=== PATIENT | male | born 1990 | race Caucasian/White ===

== ENCOUNTER 2024-12-16 14:14 | Inpatient (IN) | payer OTHER ==
[2024-12-16 14:43] VITALS: BMI 27.1
[2024-12-16] MEDS ORDERED: BENZONATATE 200 MG CAPSULE PO PRN (15:07)
[2024-12-16] MEDS ORDERED: NALOXONE (NARCAN) HCL 4 MG/0.1 ML SPRAY NS PRN (15:07)
[2024-12-16] MEDS ORDERED: DICYCLOMINE HCL 10 MG CAPSULE PO PRN (15:07)
[2024-12-16] MEDS ORDERED: IBUPROFEN 400 MG TABLET (FP) PO PRN (15:07)
[2024-12-16] MEDS ORDERED: hydrOXYzine PAMOATE 25 MG CAPSULE (FP) PO PRN (15:07)
[2024-12-16] MEDS ORDERED: guaiFENesin 600 MG TABLET.ER (FP) PO PRN (15:07)
[2024-12-16] MEDS ORDERED: ACETAMINOPHEN 325 MG TABLET (FP) PO PRN (15:07)
[2024-12-16] MEDS ORDERED: BENZOCAINE/MENTHOL (CHLORASEPTIC ) LOZENGE MM PRN (15:07)
[2024-12-16] MEDS ORDERED: POLYETHYLENE GLYCOL (HEALTHYLAX) 3350 17 GM PACKET PO PRN (15:07)
[2024-12-16] MEDS ORDERED: IBUPROFEN 600 MG TABLET (FP) PO PRN (15:07)
[2024-12-16] MEDS ORDERED: LOPERAMIDE HCL 2 MG CAPSULE PO PRN (15:07)
[2024-12-16] MEDS ORDERED: MAGNESIUM HYDROX 2400MG/30ML ORAL SUSPENSION 30 ML CUP PO PRN (15:07)
[2024-12-16] MEDS ORDERED: MAG HYDROX/AL HYDROX/SIMETH 30 ML UNIT-DOSE CUP PO PRN (15:07)
[2024-12-16] MEDS ORDERED: BISMUTH SUBSALICYLATE 524 MG/30 ML PO PRN (15:07)
[2024-12-16] MEDS ORDERED: METHOCARBAMOL 500 MG TABLET PO PRN (15:07)
[2024-12-16] MEDS ORDERED: chlordiazePOXIDE HCL 25 MG CAPSULE PO PRN (15:13)
[2024-12-16] MEDS: chlordiazePOXIDE HCL 25 MG CAPSULE PO SCH ×2 (17:36→17:44)
[2024-12-16] MEDS: PRENATAL VITAMINS W/ FOLIC ACID TABLET (FP) PO SCH (17:43)
[2024-12-16] MEDS: BUPRENORPHINE/NALOXONE 8 MG/2 MG FILM PACKET SL SCH (17:48)
[2024-12-16] MEDS: chlordiazePOXIDE HCL 25 MG CAPSULE PO ONE (18:07)
[2024-12-16] MEDS: NICOTINE POLACRILEX 2 MG GUM BUC PRN (18:58)
[2024-12-16] MEDS: chlordiazePOXIDE HCL 25 MG CAPSULE PO PRN (20:52)
[2024-12-16] MEDS: THIAMINE 100 MG TABLET PO SCH (22:35)
[2024-12-16] MEDS: MELATONIN 5 MG TABLETS PO SCH (22:36)
[2024-12-17 10:43] LABS: POTASSIUM 3.4 mmol/L (3.5-5.1)
[2024-12-17 10:44] LABS: HEMATOCRIT 38.3 % (40.1-51.0); HEMOGLOBIN 12.4 g/dL (13.7-17.5); MCHC 32.4 g/dl (32.3-36.5); MEAN CELL VOLUME 87.8 fl (79.0-92.2); MEAN PLT VOLUME 10.2 fl (9.4-12.4); PLATELET COUNT 157 x10^3/uL (163-337); RDW 14.3 % (12.0-15.6)
[2024-12-17 10:46] LABS: CALCIUM 9.1 mg/dL (8.5-10.1)
[2024-12-17 10:47] LABS: ALBUMIN 3.6 g/dl (3.4-5.0)
[2024-12-17 10:52] LABS: TOT PROT 6.7 g/dl (6.4-8.2)
[2024-12-17] MEDS: ONDANSETRON *ODT* 4 MG TABLET SL PRN (11:31)
[2024-12-17] MEDS: TUBERCULIN PPD 5 TU/0.1ML SYRINGE (IN PATIENT USE ONLY) ID ONE (12:19)
[2024-12-17] MEDS: POTASSIUM CHLORIDE TABS 20 MEQ TABLET.ER (FP) PO ONE (17:07)
[2024-12-17] MEDS: traZODone HCL 50 MG TABLET (FP) PO SCH (23:28)
[2024-12-18] MEDS ORDERED: chlordiazePOXIDE HCL 25 MG CAPSULE PO SCH (05:00)
[2024-12-18] MEDS: chlordiazePOXIDE HCL 25 MG CAPSULE PO SCH (05:49)
[2024-12-18 07:09] VITALS: RESP 16
[2024-12-18 09:12] VITALS: BP 142/89; PULSE 86; TEMP 97.7
[2024-12-18 09:13] LABS: POTASSIUM 4.4 mmol/L (3.5-5.1)
[2024-12-18 09:16] LABS: CALCIUM 9.1 mg/dL (8.5-10.1)
[2024-12-18 09:18] LABS: BLOOD UREA NITROGEN 18.3 mg/dL (7-18)
[2024-12-18 09:20] LABS: CREATININE 0.9 mg/dL (0.55-1.3)
[2024-12-19] MEDS ORDERED: chlordiazePOXIDE HCL 10 MG CAPSULE PO PRN ×2
[2024-12-19] MEDS ORDERED: chlordiazePOXIDE HCL 10 MG CAPSULE PO SCH ×2 (05:00)
[2024-12-20] MEDS ORDERED: chlordiazePOXIDE HCL 10 MG CAPSULE PO SCH ×2 (05:00)
[2024-12-21] MEDS ORDERED: chlordiazePOXIDE HCL 10 MG CAPSULE PO ONE ×2 (05:00)
== END 2024-12-18 10:58 | disposition left against medical advice (07) | DRG 770 ==
LOC: YASAS 14:14 → Y6N 17:37
PROVIDERS: ADMIT Allergy & Immunology; ATTEND Allergy & Immunology
PROC: HZ2ZZZZ Detoxification Services for Substance Abuse Treatment (ICD-10-PCS; principal; 2024-12-16)
DX: F10.230 Alcohol dependence with withdrawal, uncomplicated (principal); F11.20 Opioid dependence, uncomplicated; F17.210 Nicotine dependence, cigarettes, uncomplicated; F10.282 Alcohol dependence with alcohol-induced sleep disorder; F10.280 Alcohol dependence with alcohol-induced anxiety disorder; E87.6 Hypokalemia; Q60.0 Renal agenesis, unilateral; Z59.01 Sheltered homelessness
CPT/HCPCS: 36415; 80048; 80053; 80305; 80307; 85027; 86780; 93005; 93010; Q0162